=== PATIENT | female | born 1995 | race Caucasian/White ===

== ENCOUNTER 2017-08-12 13:35 | Emergency (ER) | payer OTHER | END 2017-08-12 14:04 | disposition left against medical advice (07) | LOC: ERS 13:35 | DX: Z53.21 Procedure and treatment not carried out due to patient leaving prior to being seen by health care provider (principal) ==

== ENCOUNTER 2017-08-12 14:02 | Observation (INO) | payer OTHER ==
[~2017-08-12 14:02] MED LIST: Iopamidol 370 76% 100 ML VIAL ONE
[2017-08-12 14:39] LABS: Bilirubin Small (Negative); Blood, Urine Negative (Negative); Clarity Cloudy (Clear); Glucose, Urine (Dipstick) 500 mg/dL (Negative); Leukocyte Negative (Negative); Nitrite Negative (Negative); Pregnancy Test - Urine (BHCG) Negative (Negative); Protein, Urine (Dipstick) 100 mg/dL (Neg-Trace); Specific Gravity, Urine 1.025 (1.005-1.030)
[2017-08-12 14:40] LABS: Pregu Control Background? CLEAR/WHITE (CLR/WHITE); Pregu Control Bar Appear? YES (CONTROL BAR); Specific Gravity 1.025 (1.002-1.036)
[2017-08-12 14:42] LABS: Bacteria/HPF 2+ HPF (None Seen); Hyaline Casts/LPF 0-3 HYALINE CAST LPF (0-3 Hyaline); RBC/HPF 0-3 HPF (0-3); Squamous Epithelial 0-3 HPF (0-3)
[2017-08-12] MEDS ORDERED: Ondansetron HCl/PF 4 MG/2 ML Vial ONE (15:04)
[2017-08-12] MEDS ORDERED: Bicillin LA 1.2 MILLION UNITS/2 ML SYRINGE ONE (15:05)
[2017-08-12] MEDS ORDERED: Dexamethasone 10 MG/ML VIAL ONE (15:05)
[2017-08-12 15:26] LABS: Base Excess-Venous 1.2 mmol/L (0 (+/- 2.5)); Bicarbonate (HCO3v) 25.5 mmol/L (1.0-85.0); CO2 Tension (PvCO2) 38.5 mmHg (41.0-51.0)
[2017-08-12 15:27] LABS: Hemoglobin - Calc 17.3 g/dL (12.0-18.0); T. Carbon Dioxide 26.7 mmol/L (1.0-85.0)
[2017-08-12 15:34] LABS: Band 24 % (5-11); Hemoglobin 14.8 g/dL (12.0-16.0); Lymphocytes 2 % (28-48); MDiff Complete? YES; Mean Corpuscular HGB CONC 32.5 g/dL (32.0-36.0); Mean Corpuscular Hemoglobin 26.2 pg (25.0-35.0); Mean Corpuscular Volume 80.6 fL (78.0-98.0); Mean Platelet Volume 7.1 fL (7.4-10.4); Monocytes 4 % (0-4); Neutrophil 70 % (31-61); PLT Morphology Comment Appears Adequate; Platelet Count 264 thou/uL (130-400); RBC Distribution Width 11.7 % (11.5-14.5); Red Blood Cell (RBC) Count 5.66 mill/uL (4.00-5.20); White Blood Cell (WBC) Count 19.8 thou/uL (4.8-10.8)
[2017-08-12 15:37] LABS: ALT (SGPT) 11 U/L (8-55); AST (SGOT) 15 U/L (5-34); Albumin 4.2 g/dL (3.5-5.0); Alkaline Phosphatase 144 U/L (40-150); Anion Gap 18 mmol/L (10-20); BUN (Urea Nitrogen) 10 mg/dL (7.0-18.7); Bilirubin, Total 0.6 mg/dL (0.2-1.2); Calc. Creatinine Clearance 0 mL/min (70-130); Calcium 9.9 mg/dL (7.8-10.44); Carbon Dioxide 24 mmol/L (22-29); Chloride 100 mmol/L (98-107); Estimated GFR-MDRD Greater than 90; Glucose 250 mg/dL (70-105); Potassium 4.2 mmol/L (3.5-5.1); Protein, Total 8.2 g/dL (6.0-8.3); Sodium 138 mmol/L (136-145)
[2017-08-12 15:39] LABS: Lipase Less than 4 U/L (8-78)
[2017-08-12] MEDS ORDERED: Clindamycin/D5W 900 mg/50 ml Premix Bag ONE (16:05)
--- NOTE | 2017-08-12 17:26 | CT ---
CT ABDOMEN AND PELVIS WITH IV CONTRAST: INDICATIONS: History of sore throat, swollen tonsils, and abdominal pain. The patient had three episodes of vomit ing this morning. She denies cough, rash, rhinorrhea, or urinary or bowel complaints. FINDINGS: There is prominent wall thickening involving the distal gastric body and antrum. No free fluid is ev ident. The liver, spleen, pancreas, and adrenal glands are normal appearing. The kidneys appear within norm al limits. There is a normal appendix in the right lower quadrant. The bladder, rectum, and perirec odalis soft tissues are unremarkable. There is a 1.6 cm follicular cyst within the right adnexa. A mild amount of retained stool is seen within the colon. No definite acute osseous abnormality is evident. IMPRESSION: 1. Prominent wall thickening involving the distal gastric body and antrum, suspicious for gastritis. This can be related to peptic ulcer disease. Malignancy and irritable bowel disease are felt to be less likely. 2. A 1.6 cm right ovarian follicular cyst. POS: EMILY
--- NOTE | 2017-08-12 17:30 | CT ---
NECK CT WITH IV CONTRAST: 08/12/2017 HISTORY: Fever and sore throat. COMPARISON: None. TECHNIQUE: Serial axial CT imaging at 2 mm intervals, from the skull base through the lung apices, with IV contr ast. Coronal and sagittal reformatted imaging obtained. FINDINGS: The imaged lung apices are unremarkable. The retroantral and parapharyngeal fat appear clear bilaterally. The parotid and submandibular glands appear grossly unremarkable. Both tonsillar pillars are enlarged and edematous, abutting one another medially in the oropharyngeal region. The enlarged palatine tonsils demonstrate a striated appearance, suggesting bilateral phleg monous change. There is a focal area of hypodensity involving the lateral aspect of the palatine ton lucila on the left, on image 21, measuring 6 mm, which may signify very early abscess formation. No herman dence for a drainable abscess is appreciated at this time. The hyoid bone, thyroid gland, thyroid cartilage, and cricoid cartilage appear unremarkable. The vascular structures of the neck appear unremarkable. There are multiple mildly enlarged level 2A lymph nodes bilaterally. There is no acute osseous abnormality seen. IMPRESSION: Bilateral palatine tonsils are enlarged and edematous with a striated appearance, suggesting bilatera l phlegmonous change. There may be a small developing abscess in the left palatine tonsil, measuring only 5-6 mm, presumably reactive adenopathy noted within level 2A bilaterally. Followup to resoluti on suggested. POS: EMILY
[2017-08-12] MEDS ORDERED: Acetaminophen 500 MG TAB ONE (17:39)
[2017-08-12] MEDS ORDERED: 1/2 NS w/KCL 20 mEq 1,000 ML IV SCH (19:15)
[2017-08-12] MEDS ORDERED: Dextrose 5% in Water 1,000 ML IV PRN ×2 (19:16→19:34)
[2017-08-12] MEDS ORDERED: Dextrose 50% Abboject 50 ML SYRINGE IVP PRN (19:16)
[2017-08-12] MEDS ORDERED: Insulin Regular 300 UNITS/3 ML VIAL SC PRN (19:18)
[2017-08-12] MEDS ORDERED: Ondansetron HCl/PF 4 MG/2 ML Vial IVP PRN ×2 (19:19→19:37)
[2017-08-12] MEDS ORDERED: Acetaminophen 325 MG TAB PO PRN ×2 (19:19→19:37)
[2017-08-12] MEDS ORDERED: Ondansetron ODT 8 MG TAB PO PRN (19:20)
[2017-08-12] MEDS ORDERED: HumaLOG 300 UNITS/3 ML VIAL SC PRN (19:34)
[2017-08-12] MEDS ORDERED: Dextrose 50% Abboject 50 ML SYRINGE SLOW IVP PRN (19:34)
[2017-08-12 19:37] VITALS: BMI 21.9
[2017-08-12] MEDS ORDERED: Promethazine HCl 25 MG SUPP PR PRN (19:37)
[2017-08-12] MEDS ORDERED: Metoclopramide HCl 10 MG/2 ML VIAL IVP PRN (19:37)
[2017-08-12] MEDS: 1/2 NS w/KCL 20 mEq 1,000 ML IV SCH (20:29)
[2017-08-12] MEDS: Pantoprazole 40 MG VIAL IVP SCH (20:31)
[2017-08-12] MEDS ORDERED: Milk Of Magnesia 30 ML UDCUP PO SCH (21:00)
[2017-08-12] MEDS ORDERED: Insulin Glargine 40 UNITS in Pre-Filled Syringe SC SCH (21:00)
[2017-08-12] MEDS: Clindamycin/D5W 900 MG in Premix Bag 1 BAG IVPB SCH (21:44)
[2017-08-12] MEDS ORDERED: Clindamycin/D5W 900 MG in Premix Bag 1 BAG IVPB SCH (23:59)
--- NOTE | 2017-08-13 02:03 | HP ---
DATE OF ADMISSION: 08/12/2017 PRIMARY CARE PHYSICIAN: Dr. Hu Ascencio. HISTORY OF PRESENT ILLNESS: The patient presented to Urgent Care for epigastric to right upper quadr ant abdominal pain. The patient noted to have a bowel movement approximately every 3-4 days at [facility], has been having some dyspepsia symptoms, worsening over the last several months. Occasionally, takes Tums, but has not taken anything consistently. The patient has had more acutely some fatigue a nd sore throat to right, however, lump in throat when swallowing to be left. Following evaluation in Urgent Care, the patient was transitioned to the emergency department following white blood cell cou nt of 19.8, where soft palate found small soft palate abscess. The patient is a type 1 diabetic and has been throwing up over the last several days, keeping some fluids down, but is somewhat dehydrated . FORMAL REVIEW OF SYSTEMS: No fevers, no chills. Positive fatigue. Positive sore throat. No conges tion or runny nose. No cough. Positive abdomen pain. Positive dyspepsia. Positive constipation. Positive nausea and vomiting. No blood reported and emesis, nonbilious. No lower extremity edema, n o headache, no vision changes, no dysuria. Review of past medical, social, and surgical history incl udes type 1 diabetes, prior head injury in 2016. MEDICATIONS: NovoLog, sliding scale insulin with meals approximately 80 total units per day. ALLERGIES: No known drug allergies. PAST SURGICAL HISTORY: No prior surgeries. SOCIAL HISTORY: The patient is nonsmoker, currently student. VITAL SIGNS: Temperature of 98.3, pulse of 97, respiratory rate 16, oxygen saturation 97% on room ai r, blood pressure 122/60. LABORATORY WORK: White blood cell count of 19.8, hemoglobin of 14.8, platelet count of 264,000. Blo od gas pH of 7.4, pCO2 of 38, paO2 of 53. It appears to be a venous gas rather than arterial gas. S odium of 138, potassium of 4.2, CO2 of 24, creatinine of 0.79. Blood glucose of 250, AST of 15, ALT of 11, alkaline phosphatase 144, albumin of 4.2, lipase of less than 4. Urinalysis: Specific gravit y 1.025, positive protein, positive glucose, positive ketones, negative blood, negative nitrite, posi tive white blood cells, positive bacteria, negative test. IMAGING: Abdomen CT reviewed, prominent thickening of distal gastric body suspicious for gastritis o n abdomen and pelvis. Soft tissue neck CT, bilateral palatine tonsils are enlarged and edematous, choi ggesting phlegmon changes, small developing abscess to left palatine tonsil, measuring 5-6 mm, reacti ve adenopathy present. Recommend follow up CT exam until resolved. PHYSICAL EXAMINATION: GENERAL: The patient is alert and oriented, in no acute distress. HEENT: Head is normocephalic, atraumatic. Extraocular movements are intact. Sclerae are white. Or al mucosa is slightly dry. Tonsils are 3+. No obvious exudates present. LUNGS: Clear to auscultation bilaterally. No rubs or wheezes. HEART: Regular rate and rhythm. No murmurs auscultated. ABDOMEN: Soft, positive bowel sounds throughout. No rebound or guarding. EXTREMITIES: Lower extremities without cyanosis or edema. NEUROLOGIC: The patient is alert and oriented x3. No focal deficits. ASSESSMENT AND PLAN: Left palatine tonsillar abscess. IV clindamycin was started in the emergency r oom. We will continue to seek ENT consultation likely with follow up CT scan. Cover patient with IV fluids and nausea medication. Regarding gastritis, we will start IV Protonix. This patient has had some emesis here recently to ensure initial medication effectiveness. The patient with possible uri nary tract infection, urine culture was ordered and sent and will follow up in the next 3 days as it progresses. However, the patient predominantly seems to be dehydrated, IV fluids as above. Regardin g the patient's constipation at this point, we will order milk of magnesia and follow the patient's b owel movements while inpatient. We will likely add some Levemir this evening, given patient's repeat blood sugar was 400 and then continue sliding scale insulin regarding her diabetes. At this point, even though ketones were in the urine that likely secondary to unable to keep down food. The patient 's blood gas does not appear. Patient is in acidosis at this point. We will check outs Dr. Hu Almanza.
[2017-08-13] MEDS: 1/2 NS w/KCL 20 mEq 1,000 ML IV SCH (04:02)
[2017-08-13] MEDS: Clindamycin/D5W 900 MG in Premix Bag 1 BAG IVPB SCH (05:18)
[2017-08-13 05:50] LABS: ALT (SGPT) 9 U/L (8-55); AST (SGOT) 11 U/L (5-34); Albumin 3.4 g/dL (3.5-5.0); Alkaline Phosphatase 119 U/L (40-150); Anion Gap 11 mmol/L (10-20); BUN (Urea Nitrogen) 6 mg/dL (7.0-18.7); Bilirubin, Total 0.3 mg/dL (0.2-1.2); Calc. Creatinine Clearance 122 mL/min (70-130); Carbon Dioxide 27 mmol/L (22-29); Chloride 105 mmol/L (98-107); Estimated GFR-MDRD Greater than 90; Globulin 2.9 g/dL (2.4-3.5); Glucose 143 mg/dL (70-105); Potassium 4.6 mmol/L (3.5-5.1); Protein, Total 6.3 g/dL (6.0-8.3); Sodium 138 mmol/L (136-145)
[2017-08-13 07:03] LABS: #Lymphocytes 0.6 thou/uL (1.20-3.40); #Monocytes 0.6 thou/uL (0.11-0.59); #Neutrophils 13.3 thou/uL (1.40-6.50); %Basophils 0.1 % (0.0-1.0); %Lymphocytes 4.3 % (28.0-48.0); %Monocytes 3.9 % (0.0-4.0); %Neutrophils 91.7 % (31.0-61.0); Hemoglobin 11.8 g/dL (12.0-16.0); Mean Corpuscular HGB CONC 31.5 g/dL (32.0-36.0); Mean Corpuscular Hemoglobin 27.1 pg (25.0-35.0); Mean Corpuscular Volume 86.1 fL (78.0-98.0); Mean Platelet Volume 7.2 fL (7.4-10.4); Platelet Count 231 thou/uL (130-400); Red Blood Cell (RBC) Count 4.36 mill/uL (4.00-5.20); White Blood Cell (WBC) Count 14.5 thou/uL (4.8-10.8)
--- NOTE | 2017-08-13 08:01 | PRG ---
DATE OF SERVICE: 08/13/2017 SUBJECTIVE: This is a 21-year-old white female with type 1 diabetes who presents with a sore throat times several days. States she had a fever of 102. She was seen in the ER and a soft tissue neck CT was performed which revealed enlarged peritonsillar tonsils. No abscess was clearly seen. There wa s suggestion of a possible developing abscess. This morning the patient is feeling much better. Her sore throat is much improved. OBJECTIVE: VITAL SIGNS: Temperature 97.5, pulse 60, respirations 20, pulse ox 98, blood pressure 113/60. HEENT: Tonsils appear enlarged bilaterally, but minimal erythema. The patient no longer has a lump in her throat that she has felt. HEART: Regular rate and rhythm. LUNGS: Clear. ABDOMEN: Soft. LABORATORY: Electrolytes normal. Creatinine 0.67, BUN 6, blood sugar is 175, 143, 127. White count 19.8 to 14.5, H&H 11 and 37. ASSESSMENT: 1. Tonsillitis, rule out peritonsillar abscess. 2. Type 1 diabetes on an insulin pump. 3. Dehydration. 4. Noncompliance. 5. Gastritis suggested on CT. PLAN: 1. Consult Dr. Otto Kiran. 2. Continue IV clindamycin. 3. Presently on Protonix. 4. We will discontinue the Levemir and continue the insulin pump for now and monitor the blood sugar s.
[2017-08-13 08:06] VITALS: BP 102/59; TEMP 98.1
[2017-08-13] MEDS: Pantoprazole 40 MG VIAL IVP SCH (09:27)
== END 2017-08-13 10:14 | disposition home or self-care (01) ==
LOC: SCSER 14:02 → 2SW 17:20
PROVIDERS: ADMIT Family Medicine; ATTEND Family Medicine
DX: J36 Peritonsillar abscess (principal); E10.9 Type 1 diabetes mellitus without complications; E86.0 Dehydration; Z91.19 Patient's noncompliance with other medical treatment and regimen
CPT/HCPCS: 36415; 36416; 70491; 74177; 80053; 81003; 81015; 81025; 82330; 82803; 83690; 85025; 87086; 96361; 96365; 96366; 96372; 96375; 96376; A4216; C9113; G0378; J0561; J1100; J2405; J3490

== ENCOUNTER 2017-12-05 09:55 | Outpatient (CLI) | payer OTHER | END 2017-12-05 09:56 | disposition home or self-care (01) | LOC: CTENTCT 09:55 | PROVIDERS: ATTEND Otolaryngology Plastic Surgery within the Head & Neck | DX: J34.2 Deviated nasal septum (principal) | CPT/HCPCS: 70486 ==

== ENCOUNTER 2017-12-11 06:41 | Day surgery (SDC) | payer OTHER ==
[2017-12-10 13:54] VITALS: BMI 20.5
[2017-12-11] MEDS ORDERED: Oxymetazoline HCl 0.05% ( 15 ML ) ONE (07:32)
[2017-12-11 07:41] LABS: BHCG - Serum Negative (NEGATIVE); Pregs Control Background? CLEAR/WHITE (CLR/WHITE); Pregs Control Bar Appear? YES (CONTROL BAR)
[2017-12-11] MEDS ORDERED: Midazolam HCl 2 mg/2 ml Vial ONE (07:59)
[2017-12-11] MEDS ORDERED: Fentanyl 100 MCG/2 ML VIAL ONE ×2 (07:59→10:03)
[2017-12-11] MEDS ORDERED: Lidocaine 1% w/Epinephrine 1:100K 30 ML VIAL ONE (08:11)
[2017-12-11] MEDS ORDERED: Labetalol HCl 100 MG/20 ML VIAL ONE (09:36)
[2017-12-11] MEDS ORDERED: Hydrocodone-Acetamin 15 ML UDCUP ONE (10:55)
[2017-12-11] MEDS ORDERED: Morphine 2 MG/ML SYRINGE ONE (12:21)
[2017-12-11] MEDS ORDERED: PROPOFOL 200 MG/20 ML VIAL ONE (15:20)
[2017-12-11] MEDS ORDERED: Ondansetron HCl/PF 4 MG/2 ML Vial ONE (15:20)
[2017-12-11] MEDS ORDERED: Lidocaine 1% PF 5 ML VIAL ONE (15:20)
[2017-12-11] MEDS ORDERED: Dexamethasone 20 MG/5 ML VIAL ONE (15:20)
[2017-12-11] MEDS ORDERED: PHENYLEPHRINE-NS 100 MCG/ML 10 ML SYRINGE ONE (15:20)
--- NOTE | 2017-12-13 13:39 | OP ---
DATE OF PROCEDURE: 12/11/2017. PREOPERATIVE DIAGNOSES: 1. Chronic rhinosinusitis. 2. Bilateral inferior turbinate hypertrophy. 3. Bilateral middle turbinate bonita bullosa. 4. Chronic adenotonsillitis. 5. Adenotonsillar hypertrophy. POSTOPERATIVE DIAGNOSES: 1. Chronic rhinosinusitis. 2. Bilateral inferior turbinate hypertrophy. 3. Bilateral middle turbinate bonita bullosa. 4. Chronic adenotonsillitis. 5. Adenotonsillar hypertrophy. PROCEDURES PERFORMED: 1. Bilateral endoscopic sinus surgery, total ethmoidectomies. 2. Bilateral endoscopic sinus surgery, maxillary antrostomies. 3. Bilateral endoscopic sinus surgery, frontal sinusotomies. 4. Bilateral inferior turbinate submucosal resection. 5. Bilateral middle turbinate bonita bullosa resection, endoscopic. 6. Tonsillectomy and adenoidectomy. SURGEON: Otto Kiran M.D. ESTIMATED BLOOD LOSS: 20 mL COMPLICATIONS: None. ANESTHESIA: GETA. PROCEDURE IN DETAIL: Patient was taken to the operating room and placed supine on the table. General endotracheal anesthesia was obtained by the Anesthesia staff. Tube was secured in the left lower li p. Patient was then placed in the beach chair position, and Afrin pledgets were placed in the nasal c avity. Injections of 1% lidocaine with 1:100,000 epinephrine were made into the nasal septum as well as the inferior turbinates. Patient was then prepped and draped in standard surgical fashion for na henny surgery. Following this, the Afrin pledgets were removed. A [place] incision was made on the le ft nasal septum. Submucoperichondrial dissection was performed. The deviated portions of the septum included portions of the cartilage and the bony septum. These isolated areas were removed using thr ee cutting rongeurs. There was noted to be a large dorsal and caudal strut, left intact for support of the nose. The mucoperichondrial flaps were then reapproximated using a 4-0 gut stitch. Any strai ght pieces of cartilage were crushed prior to this and placed between the mucoperichondrial flaps. F ollowing this, the inferior turbinates were then punctured with a submucosal coblation wand, and subm ucosal coblations were performed of multiple areas of the inferior portion of the anterior inferior t urbinate. PROCEDURE IN DETAIL: After consent was obtained, the patient was identified, brought to the operatin g room, and placed on the operating table in the supine position. General endotracheal anesthesia an d intravenous access was obtained and we proceeded with positioning the patient for oropharyngeal leroy gutierrez. Oropharyngeal exposure was obtained with a Will-Bernardino mouth gag after a head drape was placed and secured with a towel clip. The Will-Bernardino mouth gag was then suspended from the Mak tray and palatal elevation was achieved with a red rubber catheter. The right tonsil was addressed first. We used a curved Allis to grasp the tonsil and retract it medially as an anterior pillar incision was m martha. The retrotonsillar fascial plane was then established and blunt dissection was performed with t he suction cautery. Blood vessels were anticipated, identified, and cauterized as they were encounte red. Ultimately, dissection was carried to the posterior tonsillar pillar mucosa which was incised h emostatically, as well as the base of tongue connection. The tonsil was then passed off as a specime n and bleeding points within the tonsillar bed were cauterized under direct visualization. We subseq uently turned our attention to the contralateral side, where using a similar technique, a near identi christian procedure was performed. Again, the tonsil was grasped and retracted medially with a curved Justin s. The retrotonsillar fascial plane was established and while the anterior pillar was retracted medi ally, the hemostatic blunt dissection of the tonsil with a suction cautery was performed with blood v essels anticipated, identified, and cauterized as they were encountered. Again, dissection continued to the base of tongue and posterior tonsillar pillar mucosa which was incised in a hemostatic fashio n. The tonsillar beds were then carefully inspected and bleeding points were identified and cauteriz ed with a suction cautery. After this portion of the procedure, hemostasis was completely obtained. Under direct mirror visualization, we visualized the adenoid pad. Under direct mirror visualization, we removed the bulk of the adenoid tissue with the adenoid curette. We then packed the nasopharynx for an appropriate period of time with Dinh-Synephrine saturated tonsillar sponges. After a period of observation, we removed the pack. Under indirect mirror visualization, we obtained hemostasis and v aporization of residual adenoid tissue with electrocautery. The patient's oral cavity was copiously irrigated with iced saline and subsequently suctioned. After completion of the procedure, the nasal cavity and oropharynx were irrigated and suctioned as were the gastric contents. The patient was the n awakened and transferred to the recovery room where the patient remained in stable condition prior to discharge to Day Stay. Following this, the 0 degree scope was advanced in the nasal cavity. A 1% lidocaine with 1:100,000 e pinephrine was injected into the inferior turbinates, middle turbinates and the lateral nasal wall. Following this, the large obstructing middle turbinates were incised vertically with a sickle knife. The lateral portion of the middle turbinates were removed opening the bonita bullosa bilaterally. T hey were removed using straight Blakesley forceps and the straight microdebrider. Following this, th e uncinate process was anteriorly fractured bilaterally using the ball-ended probe and then was remov ed using the straight microdebrider and upbiting Blakesley forceps. Following this, the natural maxi llary sinus ostia was identified and was then widened using the curved microdebrider bilaterally. Fo llowing this, the ethmoidal bulla was identified and was punctured on its medial and inferior aspect using the microdebrider and was removed using the microdebrider and the Blakesley forceps bilaterally . Following this, the grand lamella was identified and was punctured into the posterior ethmoidal ce lls. Working from posterior to anterior, the ethmoidal cells were opened in a mucosal-sparing techni que. Following this, 45 degree endoscope and the curved microdebrider were used to further open the frontal recess cells exposing the frontal sinus ostia bilaterally. The frontal sinus ostia was then widened using the microdebrider bilaterally. Following this, the inferior turbinates were then punct ured on the anterior and inferior aspect with the submucosal microdebrider and submucosal resection w as performed of the anterior and inferior portions of the inferior turbinates bilaterally. The patie nt tolerated the procedure well. Nasal cavity was irrigated. Mirapex were placed in the middle meat us.
== END 2017-12-11 14:20 | disposition home or self-care (01) ==
LOC: SDC 06:41
PROVIDERS: ATTEND Otolaryngology Plastic Surgery within the Head & Neck
DX: J32.9 Chronic sinusitis, unspecified (principal); J35.03 Chronic tonsillitis and adenoiditis; J34.3 Hypertrophy of nasal turbinates; J34.2 Deviated nasal septum; E10.9 Type 1 diabetes mellitus without complications; Z79.4 Long term (current) use of insulin
CPT/HCPCS: 36415; 36416; 84703; 85014; 88304; 96374; 96375; J1100; J2001; J2250; J2270; J2405; J2704; J3010